=== PATIENT | male | born 1990 | race Caucasian/White ===

== ENCOUNTER 2017-02-02 19:30 | Emergency (ER) | payer OTHER ==
[~2017-02-02] VITALS: Ht 180.3 cm; Wt 80.3 kg
[2017-02-02 21:40] VITALS: BP 116/76
== END 2017-02-02 21:40 | disposition home or self-care (01) ==
LOC: EME 19:30 → RME 19:30
DX: R51 Headache (principal); F17.200 Nicotine dependence, unspecified, uncomplicated
CPT/HCPCS: 99281; 99284

== ENCOUNTER 2018-01-25 09:44 | Emergency (ER) | payer OTHER ==
[~2018-01-25] VITALS: Ht 180.3 cm; Wt 78.9 kg
[2018-01-25] MEDS ORDERED: ZOFRAN4 MG PO (10:49)
[2018-01-25 11:22] VITALS: BP 133/79
== END 2018-01-25 11:22 | disposition left against medical advice (07) ==
LOC: EME 09:44
DX: K50.90 Crohn's disease, unspecified, without complications (principal); F17.200 Nicotine dependence, unspecified, uncomplicated
CPT/HCPCS: 99281; 99284